=== PATIENT | female | born 1970 | race Caucasian/White ===

== ENCOUNTER → 2017-11-21 | Outpatient (CLI) | payer OTHER ==
[2017-11-23 07:14] LABS: ESTRADIOL 39.2 pg/mL (.); FOLLICLE STIMULATING HORMONE 21.1 mIU/mL (.); LUTEINIZING HORMONE 9.8 mIU/mL (.)
== END ==
LOC: LAB 14:22
PROVIDERS: ATTEND Obstetrics & Gynecology Reproductive Endocrinology
DX: Z31.49 Encounter for other procreative investigation and testing (principal)
CPT/HCPCS: 36415; 82670; 83001; 83002; 84146